=== PATIENT | female | born 1970 | race Caucasian/White ===

== ENCOUNTER → 2018-10-27 15:29 | Outpatient (CLI) | payer BC, SELFPAY ==
--- NOTE | 2018-10-27 | XR_ITS ---
EXAM: XR thoracic spine 3V HISTORY: Back pain ITS.REASON: DORSALGIA Comparison: None FINDINGS: Normal alignment. No fracture or dislocation. No lytic or blastic change. No significant degenerative change. The disc spaces are preserved. There is minimal lower thoracic curvature convex right. Small anterior osteophytes are present in the thoracic spine with some decrease in the disc spaces in the midthoracic spine. IMPRESSION: Mild degenerative change, no acute finding
== END ==
PROVIDERS: PCP Family Medicine; Visit Provider Family Medicine
DX: M54.6 Pain in thoracic spine (principal); M54.9 Dorsalgia, unspecified
CPT/HCPCS: 72072

== ENCOUNTER → 2019-04-06 09:37 | Outpatient (CLI) | payer BC, SELFPAY ==
--- NOTE | 2019-04-06 10:07 | XR_ITS ---
PROCEDURE: XR LUMBAR SPINE MIN 4V CLINICAL INDICATION: LUMBAR PAIN Low back pain COMPARISON: from 10/27/2018 FINDINGS: There is normal alignment. No fracture or dislocation. No lytic or blastic change. No significant degenerative change. IMPRESSION: Negative lumbar spine Dictated by: Kentrell Ames MD 04/06/2019 10:40 Electronically signed by Kentrell Ames MD in [place] 04/06/2019 10:40
== END ==
PROVIDERS: PCP Family Medicine; Visit Provider Emergency Medicine
DX: M54.5 Low back pain (principal)
CPT/HCPCS: 72110

== ENCOUNTER → 2019-04-24 16:09 | Outpatient (CLI) | payer BC, SELFPAY ==
--- NOTE | 2019-04-24 16:12 | MR_ITS ---
PROCEDURE: MR LUMBAR SPINE WO CON CLINICAL INDICATION: ACUTE RT SIDED LBP Right-sided back and hip pain COMPARISON: XR LUMBAR SPINE MIN 4V from 04/06/2019 TECHNIQUE: Standard multiplanar multiecho sequences are performed without contrast. 3-D MIP and myelographic images are also rendered and reviewed FINDINGS: There is normal alignment. The spinal cord ends at the L1 level. T12-L1, L1-L2, L2-L3, and L3-L4 have an unremarkable appearance. L4-5: Mild facet and ligamentum hypertrophy with mild bilateral foraminal narrowing. L5-S1: Concentric bulging disc with annular fissure with moderate facet and ligamentum hypertrophy. There is mild right foraminal narrowing and moderate left foraminal narrowing. No canal stenosis or extruded herniated disc is evident. IMPRESSION: 1. L4-5: Mild facet and ligamentum hypertrophy with mild bilateral foraminal narrowing. 2. L5-S1: Concentric bulging disc with annular fissure with moderate facet and ligamentum hypertrophy. There is mild right foraminal narrowing and moderate left foraminal narrowing. 3. No canal stenosis or extruded herniated disc is evident. Dictated by: Kentrell Ames MD 04/24/2019 18:28 Electronically signed by Kentrell Ames MD in [place] 04/29/2019 06:05
== END ==
PROVIDERS: PCP Family Medicine; Visit Provider Family Medicine
DX: M54.5 Low back pain (principal)
CPT/HCPCS: 72148; 76376

== ENCOUNTER → 2020-02-05 08:17 | Outpatient (CLI) | payer BC, SELFPAY ==
--- NOTE | 2020-02-05 08:25 | MM_ITS ---
PROCEDURE: MM DIG SCREENING MAMM BI W/CAD Digital Breast Tomosynthesis Included CLINICAL INDICATION: SCREENING There is no personal or family history of breast cancer. COMPARISON: This is a baseline screening exam, patient complains of some dryness and itchiness of the left breast but with no palpable areas in either breast TECHNIQUE: Standard CC and MLO images and 3D Tomosynthesis was obtained. R2 CAD reviewed. FINDINGS: Mild to moderate scattered fibroglandular densities are seen in each breast. There is a well-defined oval benign-appearing density outer quadrant right breast at approximately the 9 o'clock position. There is a small density with somewhat irregular ill-defined borders upper outer quadrant left breast. The right breast lesion almost surely represents a cyst, the smaller lesion left breast could be a cyst or developing solid nodule. Since this is a baseline study recommend the patient return for ultrasound examination of each breast. There are no suspicious microcalcifications. IMPRESSION: Fibrofatty parenchyma with nodular densities in each breast BI-RAD Category: 0 Need Additional Imaging Evaluation FOLLOW-UP: IMM Immediate Follow-up Recommended (A letter has been sent to the patient regarding results of the study.) Dictated by: Dr. Darrion Churchill MD 02/05/2020 12:54 Dr. Darrion Churchill MD in [place] 02/05/2020 12:54
== END ==
PROVIDERS: PCP Family Medicine; Visit Provider Family Medicine
DX: Z12.31 Encounter for screening mammogram for malignant neoplasm of breast (principal)
CPT/HCPCS: 77063; 77067

== ENCOUNTER → 2020-02-16 10:43 | Outpatient (CLI) | payer BC, SELFPAY ==
--- NOTE | 2020-02-16 10:51 | US_ITS ---
PROCEDURE: US BREAST LT COMPLETE CLINICAL INDICATION: ABN MAMM COMPARISON: MG MM DIG SCREENING MAMM BI W/CAD from 02/05/2020 US US BREAST RT COMPLETE from 02/16/2020 FINDINGS: There is a small hypoechoic cystic-appearing structure at the 1 o'clock position near the nipple measuring 0.5 by 0.6 x 0.3 cm with fairly well-defined borders. There may be some minimal internal echoes. Scanning in the remainder of the breast shows no abnormality. There is somewhat homogeneous diffuse echogenicity consistent with primarily fatty breast there are 2 normal appearing nodes in the axilla. IMPRESSION: Ultrasound confirmation of small benign-appearing cystic structure 1 o'clock position probably representing a small complex cyst. Recommend the patient continue with yearly screening mammography. Dictated by: Dr. Darrion Churchill MD 02/16/2020 11:38 Dr. Darrion Churchill MD in [place] 02/16/2020 11:38
--- NOTE | 2020-02-16 10:51 | US_ITS ---
PROCEDURE: US BREAST RT COMPLETE CLINICAL INDICATION: ABN MAMM COMPARISON: MG MM DIG SCREENING MAMM BI W/CAD from 02/05/2020 FINDINGS: There is a small hypoechoic cystic-appearing lesion at the 12 o'clock position near the nipple measuring 0.5 x 0.3 by 0.5 cm. This shows mild acute to can Alexander beneath. There is a well-defined oval hypoechoic structure with homogeneous internal echoes at the 9 to 10 o'clock position mid breast measuring 1.5 by 1.3 x 0.9 cm and this corresponds in size and location to the dominant density outer quadrant right breast on recent mammogram. This very likely is a fibroadenoma as it shows well-defined smooth borders. In view of the size recommend a six-month follow-up right mammogram and ultrasound to evaluate for interval stability. IMPRESSION: Probable fibroadenoma corresponding to the dominant density on mammogram and recommend short-term follow-up as indicated above category 3. Dictated by: Dr. Darrion Churchill MD 02/16/2020 11:42 Dr. Darrion Churchill MD in [place] 02/16/2020 11:42
== END ==
PROVIDERS: PCP Family Medicine; Visit Provider Physician Assistant
DX: R92.8 Other abnormal and inconclusive findings on diagnostic imaging of breast (principal)
CPT/HCPCS: 76641

== ENCOUNTER → 2021-07-26 15:03 | Outpatient (CLI) | payer BC, SELFPAY ==
--- NOTE | 2021-07-26 | MM_ITS ---
PROCEDURE INFORMATION: Exam: MG Bilateral Screening 3D Mammography Exam date and time: 07/26/2021 12:00 AM Age: 51 years old Clinical indication: Encounter for screening mammogram for malignant neoplasm of breast TECHNIQUE: Imaging protocol: Bilateral Screening tomosynthesis and 2D mammography including computer-aided detection (CAD) when performed. COMPARISON: 1. MG MM DIG SCREENING MAMM BI W/CAD 02/05/2020 8:45 AM 2. US BREAST LT COMPLETE 02/16/2020 11:20 AM FINDINGS: MAMMOGRAPHY: Breast composition: The breast tissue is composed of scattered areas of fibroglandular density. Mass: 1.9 cm ovoid mass in the middle third of the right upper outer quadrant Architectural distortion: None. Calcifications: No suspicious calcifications. Asymmetric density: None. Skin thickening: None. Axillary adenopathy: None. IMPRESSION: Patient to be recalled for right breast ultrasound for further evaluation of a right breast mass. ASSESSMENT: BI-RADS Category 0: Incomplete- Need Additional Imaging Evaluation and/or Prior Mammograms for Comparison
== END ==
PROVIDERS: PCP Family Medicine; Visit Provider Family Medicine
DX: Z12.31 Encounter for screening mammogram for malignant neoplasm of breast (principal)
CPT/HCPCS: 77063; 77067

== ENCOUNTER → 2021-08-07 08:57 | Outpatient (CLI) | payer BC, SELFPAY ==
--- NOTE | 2021-08-07 09:01 | US_ITS ---
PROCEDURE INFORMATION: Exam: US Right Breast, Complete Exam date and time: 08/07/2021 9:01 AM Age: 51 years old Clinical indication: Patient recalled for further evaluation of a right breast mass TECHNIQUE: Imaging protocol: Complete ultrasound of all four quadrants of the Right breast and the retroareolar regions, including ultrasound of the axilla when performed. COMPARISON: US BREAST RT COMPLETE 02/16/2020 11:07 AM FINDINGS: Breast: Sonographic images of the right breast including the retroareolar region, all 4 quadrants and the axilla demonstrates a hypoechoic well-circumscribed ovoid solid mass in the 10 o'clock 8 cm from the nipple corresponding to the mass mammography. On sonogram dated 02/16/20, the mass measured 1.3 x 9 x 1.5 cm cm and on the current examination the mass measures 1.5 x 1.21.8 cm. The finding likely reflects a fibroadenoma. Incidental subcentimeter cyst in the 11 o'clock axis 3 cm from the nipple. No architectural distortion or acoustical shadowing. No skin thickening or axillary adenopathy. IMPRESSION: Solid mass in the right upper outer quadrant. Given the interval change, ultrasound-guided core biopsy is recommended to ensure a benign etiology. ASSESSMENT: BI-RADS Category 4: Suspicious
== END ==
PROVIDERS: PCP Family Medicine; Visit Provider Physician Assistant
DX: R92.8 Other abnormal and inconclusive findings on diagnostic imaging of breast (principal)
CPT/HCPCS: 76641

== ENCOUNTER → 2021-08-16 07:26 | Outpatient (CLI) | payer BC, SELFPAY ==
--- NOTE | 2021-08-16 07:37 | US_ITS ---
FINAL REPORT CLINICAL HISTORY: Right breast nodule FINDINGS: ULTRASOUND-GUIDED RIGHT BREAST NODULE CORE BIOPSY TECHNIQUE: Limited images were obtained to localize region of interest. The right was prepped in a routine sterile fashion and locally anesthetized with 1% lidocaine. Hypoechoic lesion was identified at 9:00. The needle was positioned within the outer periphery of the lesion. A total of 4 passes were made with a 18 gauge core biopsy needle. A biopsy marker clip was deployed. Procedure was well tolerated . CONCLUSION: 1. Technically successful ultrasound guided core biopsy of right breast nodule as above. 2. Biopsy marker clip deployed confirmed in adequate position Authenticated by Denae Iraheta MD on 08/22/2021 11:44:42 PM [facility]
--- NOTE | 2021-08-16 08:50 | MM_ITS ---
FINAL REPORT CLINICAL HISTORY: . clip placement images FINDINGS: MAMMOGRAM RIGHT TECHNIQUE: Standard digital 2-D views DENSITY: There are scattered areas of fibroglandular density FINDINGS: Well-circumscribed mass is again noted of the medial right breast at 9:00. Minimal lucency in the mass is noted compatible with air introduced at time of biopsy. A biopsy marker clip is noted along the posterior margin of the mass, suitable location for localization. IMPRESSION: Post biopsy mammogram documenting adequate clip placement within the posterior aspect of the mass RECOMMENDATION: Pending histopathology findings Authenticated by Denae Iraheta MD on 08/22/2021 11:47:01 PM [facility]
== END ==
PROVIDERS: PCP Family Medicine; Visit Provider Physician Assistant
DX: R92.8 Other abnormal and inconclusive findings on diagnostic imaging of breast (principal)
CPT/HCPCS: 19083; 76942; 77065

== ENCOUNTER 2024-04-08 17:06 | Outpatient (CLI) | payer BC, SELFPAY ==
--- NOTE | 2024-04-08 17:19 | ECG_ITS ---
APPROVED REPORT Exam: Resting ECG HR:70 bpm ECG Measurements Heart Rate 70 AXES NE 199 P 53 QRSd 89 QRS -1 QT 379 T 48 QTc 400 Conclusion SINUS RHYTHM LOW QRS VOLTAGE IN PRECORDIAL LEADS [QRS DEFLECTION < 1.0 mV IN CHEST LEADS] POSSIBLE RIGHT VENTRICULAR CONDUCTION DELAY [RSR (QR) IN V1/V2] POSSIBLE ANTERIOR MYOCARDIAL INFARCTION , OF INDETERMINATE AGE [30 ms Q WAVE IN V3/V4, OR R < 0.2 mV IN V4] ABNORMAL ECG UNCONFIRMED REPORT Electronically signed by : Pancho Russ MD 04/10/2024 09:34:33
[2024-04-08 17:38] LABS: Basophils # 0.1 K/mm3 (0-0.2); Eosinophils # 0.2 K/mm3 (0.0-0.4); Eosinophils % 2.3 % (0.1-12.0); Hematocrit 37.9 % (37.0-47.0); Hemoglobin 12.8 g/dL (12.2-16.2); Lymphocytes # 2.9 K/mm3 (0.7-4.5); Mean Corpuscular HGB Conc 33.9 g/dL (31.8-35.4); Mean Corpuscular Hemoglobin 29.4 pg (27.0-31.2); Mean Corpuscular Volume 86.5 fl (81-99); Mean Platelet Volume 8.2 fl (7.4-10.4); Monocytes # 0.4 K/mm3 (0.1-1.0); Monocytes % 5.4 % (1.7-9.3); Neutrophils # 3.9 K/mm3 (1.8-7.8); Neutrophils % 52.4 % (37.0-80.0); Platelet Count 250 K/mm3 (142-424); Red Blood Count 4.38 M/mm3 (4.20-5.40); Red Cell Distribution Width 14.7 % (11.5-17.5); White Blood Count 7.5 K/mm3 (4.8-10.8)
[2024-04-08 17:51] LABS: Creatine Kinase 102 U/L (30-135); Iron 55 ug/dL (37-170)
[2024-04-08 18:26] LABS: Troponin I < 0.01 ng/ml (0.00-0.034)
[2024-04-08 18:28] LABS: Ferritin 4.36 ng/ml (11.1-264)
[2024-04-08 19:01] LABS: 25-OH Vitamin D, Total 41.7 ng/mL (30-100)
== END 2024-04-08 23:59 | disposition home or self-care (01) ==
LOC: LAB 17:08
PROVIDERS: PCP Physician Assistant; Visit Provider Physician Assistant
DX: R07.9 Chest pain, unspecified (principal); D50.9 Iron deficiency anemia, unspecified; E55.9 Vitamin D deficiency, unspecified
CPT/HCPCS: 82306; 82550; 82553; 82728; 83540; 84484; 85025; 93005

== ENCOUNTER 2024-04-20 15:37 | Outpatient (CLI) | payer BC, SELFPAY ==
[2024-04-20 16:53] LABS: Alanine Aminotransferase 19 U/L (12-78); Albumin Level 4.1 g/dl (3.5-5.0); Albumin/Globulin Ratio 1.6 (1.1-1.8); Alkaline Phosphatase 43 U/L (38-126); Anion Gap 5.1 mEq/L (5-15); Aspartate Amino Transferase 24 U/L (14-36); Bilirubin,Total 0.4 mg/dl (0.2-1.3); Blood Urea Nitrogen 19 mg/dl (7-17); Calcium 8.9 mg/dl (8.4-10.2); Carbon Dioxide 27 mmol/L (22.0-30.0); Chloride 106 mmol/L (98-107); Estimated Glomerular Filt Rate 88 ml/min (>60); GFR (African American) 106 ML/MIN (>60); Globulin 2.6 g/dL (1.3-3.2); Glucose 81 mg/dl (74-100); Potassium 4.1 mmoL/L (3.5-5.1); Sodium 134 mmol/L (136-145); Total Protein,Serum 6.7 g/dl (6.3-8.2)
== END 2024-04-20 23:59 | disposition home or self-care (01) ==
LOC: LAB 15:39
PROVIDERS: PCP Family Medicine; Visit Provider Physician Assistant
DX: R07.9 Chest pain, unspecified (principal)
CPT/HCPCS: 36415; 80053

== ENCOUNTER 2024-04-27 15:21 | Outpatient (CLI) | payer BC, SELFPAY ==
[2024-04-27 16:05] LABS: Basophils # 0.1 K/mm3 (0-0.2); Basophils % 0.8 % (0.1-2.0); Eosinophils # 0.1 K/mm3 (0.0-0.4); Eosinophils % 1.1 % (0.1-12.0); Hematocrit 40.2 % (37.0-47.0); Hemoglobin 13.4 g/dL (12.2-16.2); Lymphocytes # 2.7 K/mm3 (0.7-4.5); Lymphocytes % 31.9 % (10-50); Mean Corpuscular HGB Conc 33.4 g/dL (31.8-35.4); Monocytes # 0.4 K/mm3 (0.1-1.0); Monocytes % 5.2 % (1.7-9.3); Neutrophils # 5.1 K/mm3 (1.8-7.8); Neutrophils % 60.9 % (37.0-80.0); Platelet Count 265 K/mm3 (142-424); Red Blood Count 4.62 M/mm3 (4.20-5.40); Red Cell Distribution Width 14.5 % (11.5-17.5); White Blood Count 8.4 K/mm3 (4.8-10.8)
[2024-04-27 16:25] LABS: D-Dimer 0.77 ug/mL (0.0-0.5)
[2024-04-27 16:30] LABS: Anion Gap 7.7 mEq/L (5-15); Blood Urea Nitrogen 16 mg/dl (7-17); Calcium 8.9 mg/dl (8.4-10.2); Carbon Dioxide 29 mmol/L (22.0-30.0); Chloride 104 mmol/L (98-107); Chol/HDL Ratio 4.3 (1-3.5); Cholesterol 230 mg/dl (140-200); Estimated Glomerular Filt Rate 88 ml/min (>60); GFR (African American) 106 ML/MIN (>60); Glucose 107 mg/dl (74-100); HDL Cholesterol 54 mg/dl (40-60); Potassium 3.7 mmoL/L (3.5-5.1); Sodium 137 mmol/L (136-145); Triglycerides 144 mg/dl (30-150); VLDL Cholesterol 29 mg/dL (0-40)
[2024-04-27 16:40] LABS: Direct LDL Cholesterol 142.62 mg/dL (100-129)
[2024-04-27 17:00] LABS: Thyroid Stimulating Hormone 2.06 uIU/mL (0.465-4.68)
== END 2024-04-27 23:59 | disposition home or self-care (01) ==
LOC: LAB 15:24
PROVIDERS: Nurse Practitioner; PCP Family Medicine; Visit Provider Physician Assistant
DX: R94.31 Abnormal electrocardiogram [ECG] [EKG] (principal); R06.02 Shortness of breath; R07.9 Chest pain, unspecified
CPT/HCPCS: 36415; 80048; 80061; 82565; 84439; 84443; 84520; 85025; 85378

== ENCOUNTER 2024-05-05 12:03 | Outpatient (CLI) | payer BC, SELFPAY ==
--- NOTE | 2024-05-05 12:03 | CA_ITS ---
APPROVED REPORT EXAM: Comprehensive 2D, Doppler, and color-flow Echocardiogram [employer] Receptionist: Mariposa Arshad CRT Ht: 5 ft 5 in Wt: 194lbs BSA: 1.95 BP: 115/85 mmHg Indications: Abnormal ECG, Chest Pain, Shortness of Breath 2D Dimensions LA Volume 40.30 mL LA Volume Index 20.20 mL/m2 (M/F) 16-34 M-Mode Dimensions RVDd 2.76 cm (0.9-2.6) LA Diam 3.23 cm (1.9-4.0) LVDd 4.35 cm (3.5-5.7) LVDs 3.05 cm (3.5-5.7) IVSd 1.16 cm (0.6-1.1) PWd 0.78 cm (0.6-1.1) EF (Teich) 57.40% FS 29.90% EDV (Teich) 85.40 mL TAPSE 2.98 (<1.7) ESV (Teich) 36.40 mL LV Diastology E Decel Time 167 (160-240 msec) E/A Ratio 1.15 MED A' 11.80 cm/s LAT A' 14.00 cm/s Aortic Valve AO Peak GR. 6.30 mmHg Mitral Valve MV A Velocity 73.0 (40-130 cm/s) E/A Ratio 1.15 Pulmonary Valve PV Peak Velocity 148.0 (50-150 cm/s) Tricuspid Valve TR P. Velocity 180.00 cm/s RAP Estimate 10.00 mmHg RVSP 22.90 mmHg Left Ventricle The left ventricle is normal size. The left ventricular systolic function is normal. The left ventricular ejection fraction is within the normal range. There is normal left ventricular wall thickness. There is normal LV segmental wall motion. The left ventricular diastolic function is normal. LVEF is 55%. Right Ventricle The right ventricle is normal size. The right ventricular systolic function is normal. Atria The left atrium size is normal. The right atrium size is normal. There is no Doppler evidence of interatrial shunt. Aortic Valve The aortic valve opens well. There is no aortic valvular stenosis. No aortic regurgitation is present. Mitral Valve The mitral valve is normal in structure. No evidence of mitral valve stenosis. Trace mitral regurgitation. Tricuspid Valve Tricuspid valve is grossly normal in structure and function. Trace tricuspid regurgitation. There is insufficient TR jet to estimate RVSP. Pulmonic Valve The pulmonary valve is normal in structure. Trace pulmonic regurgitation. Great Vessels The aortic root is normal in size. The ascending aorta is normal in size. IVC is normal in size and collapses >50% with inspiration. Pericardium There is no pericardial effusion. Other Information Study Quality: Adequate Conclusion Normal biventricular systolic function. No significant valvular stenosis or regurgitation. Electronically signed by : Alena Betancourt MD 05/12/2024 11:09:04
--- NOTE | 2024-05-05 12:03 | CT_ITS ---
FINAL REPORT TECHNIQUE: The patient was injected with IV contrast. Axial images were obtained through the chest in a PE protocol. 3-D reconstruction images were also performed. Individualized dose reduction techniques using automated exposure control or adjustment of the MA and/or KV according to patient's size were employed. CLINICAL HISTORY: soa, elevated d dimer COMPARISON: None FINDINGS: Mediastinal vasculature is adequately opacified. No pulmonary artery filling defects are identified to suggest PE. There is no aortic dissection. There is no axillary adenopathy. There is no hilar or mediastinal adenopathy. The heart size is normal. There is no pericardial or pleural effusion. Limited images of the upper abdomen are unremarkable. No suspicious infiltrate or nodule is identified. IMPRESSION: No pulmonary embolus or dissection. Reviewed, Interpreted and Dictated by Clifford Seth MD Transcribed by Felicia Enriquez Authenticated and [facility]
[2024-05-05] MEDS: IOPAMIDOL-370 (76%);100ML BOTTLE 70 ML IV (12:36)
[2024-05-05] MEDS: 0.9 % SODIUM CHLORIDE 50 ML VIAL IV (12:36)
[2024-05-05] MEDS: SODIUM CHLORIDE 0.9% 10ML SYR (RAD ONLY) 10 ML IV (12:36)
== END 2024-05-05 23:59 | disposition home or self-care (01) ==
LOC: RAD 12:03
PROVIDERS: PCP Family Medicine; Visit Provider Nurse Practitioner
DX: R06.02 Shortness of breath (principal); R94.31 Abnormal electrocardiogram [ECG] [EKG]; R07.9 Chest pain, unspecified
CPT/HCPCS: 71275; 93306; Q9967

== ENCOUNTER 2024-05-06 14:45 | Outpatient (CLI) | payer BC, SELFPAY ==
--- NOTE | 2024-05-06 14:53 | XR_ITS ---
FINAL REPORT CLINICAL HISTORY: BACK PAIN COMPARISON: None FINDINGS: Four views of the lumbosacral spine were obtained. There is no acute fracture. There is no malalignment. The vertebrae are normal in height. The disc spaces are preserved. There is moderate facet sclerosis at L5-S1. IMPRESSION: Degenerative changes without acute process. Reviewed, Interpreted and Dictated by Clifford Seth MD Transcribed by Deborah Padgett Authenticated and [facility]
== END 2024-05-06 23:59 | disposition home or self-care (01) ==
LOC: RAD 14:47
PROVIDERS: PCP Family Medicine; Visit Provider Physician Assistant
DX: M54.16 Radiculopathy, lumbar region (principal)
CPT/HCPCS: 72110

== ENCOUNTER 2024-05-12 16:00 | Outpatient (CLI) | payer BC, SELFPAY ==
--- NOTE | 2024-05-12 16:02 | MR_ITS ---
FINAL REPORT TECHNIQUE: Multiplanar and multisequence imaging of the lumbar spine was obtained without contrast. CLINICAL HISTORY: BACK PAIN W/RLERADICULOPATHY FINDINGS: There is normal alignment of the lumbar vertebral bodies. Vertebral body height is preserved. The spinal cord ends at the level of L1. There is normal signal intensity within the substance of the distal spinal cord. No acute bone marrow edema or pathologic marrow replacement. No acute paraspinal abnormality is identified. There are likely parapelvic left renal cysts. L1-2: There is no focal disc herniation, central canal stenosis or neuroforaminal narrowing. L2-3: There is no focal disc herniation, central canal stenosis or neuroforaminal narrowing. L3-4: An annular disc bulge is present. There is no canal stenosis or neuroforaminal narrowing. L4-5: An annular disc bulge is present. There is no canal stenosis or neuroforaminal narrowing. L5-S1: An annular disc bulge is present with moderate bilateral neuroforaminal narrowing. IMPRESSION: Multilevel degenerative disc disease. Reviewed, Interpreted and Dictated by Terese Brunson MD Transcribed by Sharri Kasper Authenticated and [facility]
== END 2024-05-12 23:59 | disposition home or self-care (01) ==
PROVIDERS: PCP Family Medicine; Visit Provider Family Medicine
DX: M54.16 Radiculopathy, lumbar region (principal)
CPT/HCPCS: 72148